=== PATIENT | male | born 1960 | race Caucasian/White ===

== ENCOUNTER 2022-10-17 15:25 | Emergency (ER) | payer OTHER, SELFPAY ==
[2022-10-17 15:26] VITALS: BP 172/96; PULSE 98; RESP 18; TEMP 36.4; O2SAT 97; BMI 24.1
--- NOTE | 2022-10-17 15:45 | RAD_ITS ---
INDICATION: chest pain EXAMINATION/TECHNIQUE: X-RAY - XR Chest 1 View COMPARISON: FINDINGS: LINES/DEVICES: None. LUNGS: No consolidation, edema or effusion. No pneumothorax. MEDIASTINUM AND CARDIOVASCULAR STRUCTURES: Cardiac silhouette not enlarged. Central airways and mediastinal contour are unremarkable. BONES AND SOFT TISSUES: Degenerative vertebral changes. RAD/Chest 1 View (Portable) IMPRESSION: No radiographic evidence of acute cardiopulmonary disease. Electronically Signed: Osman Mckeon DO at 16:08 EDT ,
--- NOTE | 2022-10-17 15:47 | EDS_ITS ---
HPI History of Present Illness Chief Complaint: General Illness Narrative Narrative: 61-year-old male presenting with chest pain which started about an hour ago. He was driving had some sharp pain in the left side of his chest which started to feel like an ache. He states that it only lasted for short while and is now gone. He denies dizziness, nausea, lightheadedness. No history of heart disease. Patient does not see a doctor on a regular basis. He states that he gets his blood done [facility] a [facility] and they usually send this to his primary care physician. His primary care physician is now retired and he supposed to see Dr. Bennett. He states he has no history of diabetes, cholesterol, hypertension. He has been otherwise healthy. No DVT/PE risk factors PFSH PFSH Medical History no medical history Home Medications NK 10/17/22 [History Last Taken Unknown] Allergy/AdvReac Type Severity Reaction Status Date / Time No Known Allergies Allergy Verified 10/17/22 15:28 Social History Smoking Status: Never smoker ROS ROS ED Constitutional Constitutional ED: Denies chills, fever(s) or sweats Eyes Eyes: Denies blurry vision or change in vision ENT ENT ED: Denies ear pain or sore throat Cardiovascular Cardiovascular: Reports chest pain and palpitations; Denies racing heartbeat Respiratory/Chest Respiratory/Chest: Denies cough, dyspnea or sputum Gastrointestinal Gastrointestinal: Denies abdominal pain, constipation, diarrhea, nausea or vomiting Genitourinary Genitourinary ED: Denies dysuria, hematuria or urinary frequency Musculoskeletal Musculoskeletal: Denies arthralgias, myalgias or neck pain Integumentary Denies abscess, Abrasions or rash Neurologic Neurologic: Denies headache(s), paresthesias or weakness Psychiatric Psychiatric: Reports anxiety; Denies depression, suicidal ideation or suicidal thoughts Endocrine Endocrinology: Denies polydipsia or polyuria EXAM Physical Exam Const Vital Signs: 10/17/22 15:26 10/17/22 16:04 10/17/22 16:04 Temperature 97.5 F L Temperature Source Temporal Pulse Rate 98 79 Respiratory Rate 18 18 Respiratory Pattern Blood Pressure 172/96 H 135/88 H Blood Pressure Mean 121 103 Pulse Ox 97 96 Oxygen Delivery Method Room Air Room Air Room Air 10/17/22 16:07 10/17/22 18:15 Temperature Temperature Source Pulse Rate 64 Respiratory Rate 16 Respiratory Pattern Normal Blood Pressure 144/86 H Blood Pressure Mean 105 Pulse Ox 97 Oxygen Delivery Method Room Air Positive well nourished General Appearance ED: NAD HEENT Reports moist mucous membranes Eyes PERRL and EOMs intact bilaterally General Eye ED: Negative for pale conjunctiva or scleral icterus Chest Wall inspection of chest normal and palpation of chest normal Resp normal respiratory effort and clear to auscultation bilaterally Effort and Inspection: Negative for retractions Cardio regular rate and regular rhythm GI normal to inspection, nondistended, normoactive bowel sounds Extremity General Extremety ED: Negative for edema or tenderness General Extremity: Negative for edema Neuro oriented x3 and CN's II-XII intact bilaterally Motor Exam: strength 5/5 throughout Psych mental status grossly normal Skin no rashes or lesions noted and no wounds MDM MDM MDM Narrative Medical decision making narrative: Patient presenting with chest pain which is sharp and aching and lasted for short duration. No history of cardiac disease. Differential includes pneumonia, PE, pneumothorax, acute coronary syndrome, CHF. Considered PE however patient is PERC negative. CBC and BMP were obtained to assess for renal function, electrolytes, hemoglobin and hematocrit. High-sensitivity troponin and EKG to assess for ischemia. Chest x-ray to rule out pneumonia. BNP to rule out CHF. CBC shows no leukocytosis. Hemoglobin hematocrit stable. Platelets are normal. Renal function electrolytes within normal limits. High-sensitivity troponin is less than 3. BNP 36.7. EKG shows sinus rhythm with a ventricular rate of 89 bpm without sign ischemic change or ectopy on my interpretation. Chest x-ray shows no acute process on my interpretation and radiologist interprets this and agrees. Delta troponin was 4. Therefore there is no significant interval change. Patient's work-up is ultimately normal and I feel he stable for discharge at this time. Recommend he follow-up with his PCP to ensure resolution. Impression: 1. Chest pain Lab Data Labs: Laboratory Results - last 24 hr 10/17/22 10/17/22 15:35 18:15 WBC 5.6 RBC 5.21 Hgb 15.5 Hct 48.1 MCV 92.3 MCH 29.8 MCHC 32.2 RDW Std Deviation 42.6 RDW Coeff of Tessa 12.5 Plt Count 269 MPV 10.3 Immature Gran % (Auto) 0.200 Neut % (Auto) 75.9 H Lymph % (Auto) 15.0 L Knox % (Auto) 8.3 Eos % (Auto) 0.2 Baso % (Auto) 0.4 Absolute Neuts (auto) 4.2 Absolute Lymphs (auto) 0.83 Nucleated RBC % 0 Sodium 139 Potassium 3.9 Chloride 106 Carbon Dioxide 26.0 Anion Gap 7 BUN 13 Creatinine 1.02 Estim Creat Clear Calc 71.72 Est GFR (MDRD) Af Amer 95 Est GFR (MDRD) Non-Af 78 BUN/Creatinine Ratio 12.7 Glucose 117 H Calcium 9.4 Troponin I High Sens < 3 L 4 B-Natriuretic Peptide 36.7 Radiography Diagnostic Testing: Clinical Impression(s) from Imaging Studies Chest X-Ray 10/17/22 15:45 IMPRESSION: No radiographic evidence of acute cardiopulmonary disease. Electronically Signed: Osman Mckeon DO at 16:08 EDT Reading Location ID and State: [address] [place] [address] Tel [phone], Service support , Discharge Plan Triage Chief Complaint: General Illness Other Complaint: Anxiety ED Provider: Evert Marie Dx/Rx/DC Orders Instructions: ED Chest Pain, Noncardiac Prescriptions: No Action NK Primary Care Provider: Aldo Bennett Referrals: NOT,DEFINED [Non-Staff] - Disposition Disposition: Home, Self Care
[2022-10-17 16:04] VITALS: BP 135/88; PULSE 79; RESP 18; O2SAT 96
[2022-10-17 16:09] LABS: Absolute Lymphocyte Count 0.83 X10^3/uL (0.83-4.51); Absolute Neutrophil Count 4.2 X10^3/uL (2.0-7.7); Basophil# 0.02 X10^3/uL; Basophil% 0.4 % (0-1); Eosinophil# 0.01 X10^3/uL; Eosinophils% 0.2 % (0-5); Hematocrit 48.1 % (40-54); Hemoglobin 15.5 g/dL (13.0-16.5); Lymphocyte # 0.83 X10^3/ul (0.83-4.51); Mean Corp Hgb Conc 32.2 g/dL (32-36); Mean Corpuscular Hgb 29.8 pg (27.0-32.0); Mean Corpuscular Volume 92.3 fL (80-94); Mean Platelet Vol. 10.3 fl (6.2-12.0); Monocyte# 0.46 X10^3/uL; Monocyte% 8.3 % (0-10); NRBC Flagged by Analyzer 0 % (0-5); Neutrophil # 4.22 X10^3/uL (2.7-7.7); Neutrophil % 75.9 % (47-70); Platelet Count 269 K/mm3 (150-450); RBC Distribution Width CV 12.5 % (11.6-14.6); RBC Distribution Width SD 42.6 fl (35.1-43.9); Red Blood Count 5.21 M/mm3 (4.6-6.2); White Blood Count 5.6 K/mm3 (4.4-11.0)
[2022-10-17] MEDS: Aspirin 81 MG TAB.CHEW 324 MG PO (16:10)
[2022-10-17 16:27] LABS: Anion Gap 7 (5-15); BUN 13 mg/dL (7-18); BUN/Creat Ratio 12.7 RATIO (10-20); Calcium,Total 9.4 mg/dL (8.5-10.1); Chloride 106 mmol/L (98-107); Creatinine, Serum 1.02 mg/dL (0.70-1.30); EST Glomerular Filtration Rate 78 mL/min (>60); Est Glom Filt Rate - Afr Amer 95 mL/min (>60); Estimated Creatinine Clearance 71.72 ml/min; Glucose 117 mg/dL (74-106); Potassium 3.9 mmol/L (3.5-5.1); Sodium Level 139 mmol/L (136-145); Troponin-I HS (w/2H Reflex) < 3 pg/mL (3.0-78.0)
[2022-10-17 16:33] LABS: BNP,B-Type NATRIURETIC PEPTIDE 36.7 pg/mL (0-100)
[2022-10-17 18:04] LABS: Reflex Troponin-HS? (from REC) Y
[2022-10-17 18:15] VITALS: BP 144/86; PULSE 64; RESP 16; O2SAT 97
[2022-10-17 18:38] LABS: Troponin-I HS 4 pg/mL (3.0-78.0)
== END 2022-10-17 19:09 | disposition home or self-care (01) ==
PROVIDERS: Emergency Provider Student in an Organized Health Care Education/Training Program; PCP Family Medicine; Visit Provider Student in an Organized Health Care Education/Training Program
DX: R07.9 Chest pain, unspecified (principal); F41.9 Anxiety disorder, unspecified
CPT/HCPCS: 71045; 80048; 83880; 84484; 85025; 93005; 99285; A4216

== ENCOUNTER → 2024-05-15 | Outpatient (CLI) | payer MEDICARE, SELFPAY ==
[2024-05-15 10:34] LABS: Absolute Lymphocyte Count 1.43 X10^3/uL (0.83-4.51); Basophil# 0.02 X10^3/uL; Basophil% 0.5 % (0-1); Eosinophils% 2.4 % (0-5); Hematocrit 46.2 % (40-54); Hemoglobin 14.9 g/dL (13.0-16.5); Lymphocyte # 1.43 X10^3/ul (0.83-4.51); Lymphocyte % 34.7 % (19-41); Mean Corp Hgb Conc 32.3 g/dL (32-36); Mean Corpuscular Hgb 29.9 pg (27.0-32.0); Mean Corpuscular Volume 92.8 fL (80-94); Mean Platelet Vol. 10.9 fl (6.2-12.0); Monocyte# 0.57 X10^3/uL; Monocyte% 13.8 % (0-10); NRBC Flagged by Analyzer 0 % (0-5); Neutrophil # 1.99 X10^3/uL (2.7-7.7); Neutrophil % 48.4 % (47-70); Platelet Count 225 K/mm3 (150-450); RBC Distribution Width CV 12.8 % (11.6-14.6); RBC Distribution Width SD 43.4 fl (35.1-43.9); Red Blood Count 4.98 M/mm3 (4.6-6.2); White Blood Count 4.1 K/mm3 (4.4-11.0)
[2024-05-15 11:13] LABS: Albumin, Serum 4.2 g/dL (3.4-4.8); BUN 16 mg/dL (4-19); BUN/Creat Ratio 17.6 RATIO (10-20); Creatinine, Serum 0.91 mg/dL (0.70-1.20); EST Glomerular Filtration Rate 93 (>60); Globulin 2.6 g/dL (2.2-4.2); Glucose 102 mg/dL (70-99); Protein, Total 6.8 g/dL (5.9-8.4)
[2024-05-15 11:14] LABS: ALB/GLOB Ratio 1.6 RATIO (0.9-2.4); AST(SGOT) 25 U/L (<=37); Alanine Aminotransfer ALT/SGPT 24 U/L (<=46); Alkaline Phosphatase 70 U/L (40-129); Anion Gap 11 (5-15); Calcium,Total 9.4 mg/dL (7.6-11.0); Carbon Dioxide 25.7 mmol/L (21.0-32.0); Chloride 103 mmol/L (98-108); Cholesterol 243 mg/dL (<=200); High Density Lipoprotein 50 mg/dL; Low Density Lipoprotein Calc. 172 mg/dL; PSA,Total - Annual Screen 5.93 ng/mL (0.02-4.00); Potassium 4.2 mmol/L (3.3-5.1); Sodium Level 139 mmol/L (133-145); Total Bilirubin 0.25 mg/dL (0.00-1.30); Triglycerides 107 mg/dL; Very Low Density Lipoprotein 21 mg/dL (5-40); cholesterol:hdl ratio screen 4.87
== END | disposition home or self-care (01) ==
LOC: MTLAB 07:19
PROVIDERS: PCP Family Medicine; Referring Provider Family Medicine; Visit Provider Family Medicine
DX: Z13.220 Encounter for screening for lipoid disorders (principal); Z12.5 Encounter for screening for malignant neoplasm of prostate; Z13.1 Encounter for screening for diabetes mellitus
CPT/HCPCS: 36415; 80053; 80061; 84153; 85025; G0103